=== PATIENT | female | born 2000 | race Asian ===

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

== ENCOUNTER 2020-01-09 13:27 | Emergency (ER) | payer OTHER, SELFPAY ==
[~2020-01-09] VITALS: Ht 165.1 cm; Wt 81.6 kg
[2020-01-09 13:29] VITALS: Ht 165.1 cm; Wt 81.6 kg
[2020-01-09 16:27] LABS: BASOPHIL % 0.3 % (0-2); PLATELET COUNT 281 x10^3mcL (130-400); RED CELL DISTRIBUTION WIDTH 13.9 % (11.5-14.5)
[2020-01-09 17:04] LABS: CARBON DIOXIDE 27.6 mmol/L (21-32); CHLORIDE SERUM 104 mmol/L (98-107); CREATININE SERUM 0.7 mg/dL (0.6-1.0); GFR1 > 60 mL/min; GLUCOSE SERUM 103 mg/dL (74-106); POTASSIUM SERUM 3.4 mmol/L (3.5-5.1); SODIUM SERUM 139 mmol/L (136-145)
[2020-01-09 17:18] LABS: ALKALINE PHOSPHATASE 66 U/L (46-116); ALT/SGPT 20 U/L (14-59); AMYLASE 51 U/L (25-115); AST/SGOT 15 U/L (15-37); BILIRUBIN TOTAL 0.3 mg/dL (0.20-1.00); LIPASE 99 IU/L (73-393); TOTAL PROTEIN, SERUM 7.9 g/dL (6.4-8.2)
[2020-01-09 18:15] VITALS: BP 128/78
== END 2020-01-09 18:15 | disposition home or self-care (01) ==
LOC: ED 13:27
PROVIDERS: Emergency Medicine
DX: B34.9 Viral infection, unspecified (principal); T39.1X5A Adverse effect of 4-Aminophenol derivatives, initial encounter; Z20.828 Contact with and (suspected) exposure to other viral communicable diseases; Y92.89 Other specified places as the place of occurrence of the external cause
CPT/HCPCS: G0480; J0780; J1885; U0003